=== PATIENT | female | born 1975 ===

== ENCOUNTER 2019-08-16 17:56 | Emergency (ER) | payer MEDICAID ==
[~2019-08-16] VITALS: Ht 162.6 cm; Wt 68.0 kg
[2019-08-16 19:13] LABS: CLARITY URINE CLOUDY (CLEAR); COLOR URINE ORANGE (YELLOW); KETONES URINE TRACE (NEGATIVE); LEUKOCYTE ESTERASE URINE 1+ (NEGATIVE); NITRITE URINE NEGATIVE (NEGATIVE); OCCULT BLOOD URINE 3+ (NEGATIVE); PROTEIN URINE 2+ (NEGATIVE); SPECIFIC GRAVITY URINE 1.025 (1.005-1.030)
[2019-08-16] MEDS ORDERED: IBUPROFEN 600MG TABLET PO ONE (20:30)
[2019-08-16 21:06] VITALS: BP 111/68
== END 2019-08-16 21:06 | disposition home or self-care (01) ==
LOC: ER 17:56
DX: M79.631 Pain in right forearm (principal); E11.9 Type 2 diabetes mellitus without complications; E78.00 Pure hypercholesterolemia, unspecified; Z98.890 Other specified postprocedural states
CPT/HCPCS: 73090; 81003; 81025; 99284